=== PATIENT | female | born 1965 | race Hispanic/Latino ===

== ENCOUNTER → 2018-01-22 | Outpatient (CLI) | payer OTHER ==
[~2018-01-22] MED LIST: DIATRIZOATE MEGL/DIATRIZOA SOD 30 ML BTL PO ONE; IOPAMIDOL 370 MG/ML 200 ML INFUS..BTL INJ ONE; SODIUM CHLORIDE 0.9% 50ML 50 ML ONE
--- NOTE | 2018-01-22 19:18 | Diagnostic Imaging Report ---
EXAM: CT of the abdomen and pelvis WITH contrast HISTORY: LEFT SIDE ABDOMINAL PAIN, history of stones COMPARISON: None available. TECHNIQUE: The abdomen and pelvis were scanned utilizing a multidetector helical scanner. Coronal and sagittal reformats are provided. PROTOCOL: Routine IV CONTRAST: 100 cc of Isovue-370. ORAL CONTRAST: Water RADIATION DOSE: Total DLP: 558.09 mGy*cm Estimated effective dose: (DLP x 0.015 x size factor) COMPLICATIONS: None FINDINGS: LOWER THORAX: Unremarkable. HEPATOBILIARY: No focal hepatic lesions. No biliary ductal dilatation. The gallbladder is partially contracted. No radiopaque stones. SPLEEN: No splenomegaly. PANCREAS: No focal masses or ductal dilatation. ADRENALS: No discrete adrenal nodule. KIDNEYS/URETERS: No hydronephrosis, calcified stones, or solid mass lesions. PELVIC ORGANS/BLADDER: The uterus is anteflexed. The urinary bladder is predominantly decompressed. PERITONEUM / RETROPERITONEUM: No free air or fluid. LYMPH NODES: No pathologically enlarged lymph node. VESSELS: Unremarkable. GI TRACT: No distention or wall thickening identified. Minimal scattered colonic diverticuli. The appendix is normal. BONES: No aggressive osseous lesion or acute fracture. SOFT TISSUES: Small fat-containing umbilical hernia, without associated inflammatory changes. IMPRESSION: 1. No hydronephrosis or stone. 2. Minimal colonic diverticulosis, without evidence of acute diverticulitis. 3. Small fat-containing umbilical hernia. Signed by: Dr. Justus Chavez D.O., M.M.M. on 01/22/2018 7:14 PM
== END ==
LOC: CT 16:46
PROVIDERS: ATTEND Internal Medicine Gastroenterology
DX: R10.32 Left lower quadrant pain (principal); R10.12 Left upper quadrant pain; R10.812 Left upper quadrant abdominal tenderness; K57.30 Diverticulosis of large intestine without perforation or abscess without bleeding; E66.3 Overweight; Z71.3 Dietary counseling and surveillance; Z86.010 Personal history of colon polyps
CPT/HCPCS: 74177; Q9967